=== PATIENT | male | born 1985 ===

== ENCOUNTER 2023-11-23 20:01 | Emergency (ER) | payer OTHER, SELFPAY ==
--- NOTE | ~2023-11-23 | XR_ITS ---
EXAMINATION: XR HAND, RIGHT CLINICAL INFORMATION: Right index and middle finger injuries COMPARISON: None available. TECHNIQUE: PA, lateral, and oblique views of the right hand. FINDINGS: Osseous alignment is anatomic. No acute fracture is seen. No significant focal soft tissue abnormality identified. XR/XR hand RT 2V IMPRESSION: No acute findings identified.
[2023-11-23 20:16] VITALS: BP 122/77; PULSE 77; RESP 18; TEMP 36.8; O2SAT 97; BMI 27.9
--- NOTE | 2023-11-23 20:18 | ED.GENADULT ---
HPI - General Adult General Chief complaint: Extremity Injury, Upper Stated complaint: ? broken finger Time Seen by Provider: 11/23/23 20:34 Source: patient Mode of arrival: ambulatory Limitations: no limitations History of Present Illness HPI narrative: Patient is a 38-year-old male presents emergency department for evaluation of traumatic pain to the right distal tips of the 1st and 2nd digit. Reports getting stuck between a fence post. Pain has persisted over the past week which prompted his evaluation in the ER. No obvious deformity is present, he is able to fully flex and extend the digits. States he has not taken any [id number] pain medications including Tylenol or ibuprofen. Denies any prior injury to these digits. Denies any numbness tingling or cold sensation. Related Data Allergies Allergy/AdvReac Type Severity Reaction Status Date / Time No Known Allergies Allergy Verified 11/23/23 20:19 Review of Systems Review of Systems: Yes all other systems are reviewed and are negative PMFSH Past Medical History Attestation statement: The following information was validated with the patient. Source: old records reviewed Social History Social History Alcohol intake: current Alcohol intake frequency: holidays/special occasions only Smoked in Last 30 Days: Yes Use of substances other than those prescribed or required for medical reasons: No Advance Directives: No Advance Directives Information Provided: No Physical Exam ED Vital Signs: Vital Signs - 24 hr 11/23/23 20:16 11/23/23 21:12 Temperature 98.2 F 98.4 F Pulse Rate 77 80 Respiratory Rate 18 16 Blood Pressure 122/77 128/84 Pulse Oximetry 97 96 Oxygen Delivery Method Room Air Room Air BMI result Body Mass Index 27.9 Appearance: Alert.?Oriented to person, place and time. No acute distress.?Normal affect. Neck: Normal inspection.? Neck supple.?? CVS: Heart sounds normal. Normal heart rate and rhythm.? Pulses normal.?? Respiratory: No respiratory distress.? Lung sounds clear to auscultation bilaterally?? Skin: Skin warm and dry.? Normal skin color.? Extremities: No lower extremity edema.? No calf ttp?digits try and without acute deformity, swelling, erythema. Full AROM. Neuro: Moves all extremities spontaneously. Sensation intact bilaterally. Ambulates with normal steady gait. Course Course Course Narrative: Injured right middle and index finger 1 week ago and still painful and swollen X-ray ordered This rapid medical exam and triage pending full evaluation by ER provider Medical Decision Making Medical Decision Making MDM Narrative: Patient is a 38 old male who presents emergency department for traumatic right hand pain to the 1st and 2nd digit as per HPI. Extremities neurovascularly intact distally. He is right-hand dominant. XR imaging obtained to evaluate for fracture/dislocation, x-ray is normal. Symptoms consistent with contusion, recommended acetaminophen/ibuprofen, outpatient follow-up PCP as needed. Differential Diagnosis Differential Diagnoses: The differential diagnosis associated with the presentation includes (As noted above) Independent Interpretation I performed an independent interpretation of an: Plain X-Ray (No acute fracture) Radiology Impression Discussion of test interpretation with radiology: I have reviewed the radiologist's reading. Radiologist Impression: XR/XR hand RT 2V IMPRESSION: No acute findings identified. Prescription Management I considered prescription management with: Pain Medication (Acetaminophen/ibuprofen) Discharge Plan Discharge Clinical Impression: Contusion of finger of right hand Patient Disposition: Home, Self-Care Instructions: Contusion in Adults (ED) Additional Instructions: You can take ibuprofen 200 mg, 3 tablets (600mg) every 6-8 hours as needed for pain, in addition to Tylenol 500 mg, 2 tablets (1,000mg) every 4-6 hours as needed for pain, but not to exceed 3 doses daily (3,000mg).?
[2023-11-23 21:12] VITALS: BP 128/84; PULSE 80; RESP 16; TEMP 36.9; O2SAT 96
== END 2023-11-23 22:08 | disposition home or self-care (01) ==
PROVIDERS: Emergency Provider Emergency Medicine
DX: S60.221A Contusion of right hand, initial encounter (principal); X58.XXXA Exposure to other specified factors, initial encounter; Y93.9 Activity, unspecified; Y92.9 Unspecified place or not applicable; Y99.8 Other external cause status
CPT/HCPCS: 73120; 99283; 99284

== ENCOUNTER 2024-05-20 05:27 | Emergency (ER) | payer OTHER, SELFPAY ==
--- NOTE | 2024-05-20 | ECG_ITS ---
Test Reason : tachycardia Blood Pressure : / mmHG Vent. Rate : 118 BPM Atrial Rate : 118 BPM P-R Int : 148 ms QRS Dur : 080 ms QT Int : 316 ms P-R-T Axes : 020 029 033 degrees QTc Int : 442 ms Sinus tachycardia Otherwise normal ECG No previous ECGs available Referred By: Generic ED Physician Electronically Signed By:JAMES CEBALLOS MD
--- NOTE | ~2024-05-20 | CT_ITS ---
EXAMINATION: CT ABDOMEN AND PELVIS WITHOUT CONTRAST CLINICAL INFORMATION: Flank pain COMPARISON: None available. TECHNIQUE: Multidetector volumetric imaging was performed from the superior aspect of the liver through the pubic symphysis. Sagittal and coronal reformatted images were obtained on the technologist's workstation. This CT examination was performed using dose optimization techniques as appropriate, variously including the following: *Automated exposure control *Adjustment of mA and/or kV according to patient size (this includes techniques or standardized protocols for targeted exams where dose is matched to indication/reason for exam; i.e. extremities or head) *Use of iterative reconstruction technique DLP: 781 mGy-cm FINDINGS: LUNG BASES: Emphysematous changes. No pneumothorax. No large pleural effusion. LIVER, GALLBLADDER, AND BILIARY TREE: The liver is normal in size, shape, and attenuation. No focal hepatic lesion or biliary ductal dilatation is present. The gallbladder is surgically absent. PANCREAS: Unremarkable. SPLEEN: Unremarkable. ADRENAL GLANDS: Unremarkable. KIDNEYS AND URETERS: The kidneys are normal in size, shape, and attenuation. No hydronephrosis, hydroureter, or calculi seen. No perinephric stranding. BLADDER: Urinary bladder is decompressed with suggestion of mild wall thickening which is nonspecific in an underdistended state. GASTROINTESTINAL TRACT: The small and large bowel are unremarkable. The appendix appears surgically absent. ABDOMINAL WALL: Fat filled umbilical hernia. LYMPH NODES: No enlarged lymph nodes per size criteria. VASCULAR: Abdominal aorta is nonaneurysmal. Circumaortic left renal vein. PELVIC VISCERA: Prostate measures 4.4 x 3.1 cm with punctate calcifications within its body. OSSEOUS STRUCTURES: Multilevel degenerative changes of the thoracolumbar lumbosacral spine with posterior disc osteophyte complex at L5-S1. CT/CT abdomen pelvis wo IV con IMPRESSION: 1. No acute process of the abdomen or pelvis identified. 2. Status post cholecystectomy. 3. Urinary bladder is decompressed with suggestion of mild wall thickening which is nonspecific in an underdistended state.
[2024-05-20 05:35] VITALS: BP 117/72; PULSE 126; RESP 18; TEMP 37.1; O2SAT 96; BMI 27.5
[2024-05-20 05:59] LABS: MANUAL DIFF FLAG NO
[2024-05-20 06:00] LABS: Basophils Percent Auto 0.7 % (0-2); Eosinophils Percent Auto 0.5 % (0-4); Hematocrit 45.3 % (42.0-52.0); Hemoglobin 16.1 g/dl (14.0-18.0); Imm Gran Abs Auto 0.03 X10*3/uL (0.00-0.03); Imm Gran Pct Auto 0.5 % (0.0-0.4); Lymphocytes Absolute Auto 1.4 X10*3/uL (1.2-4.9); Lymphocytes Percent Auto 23.5 % (20-40); Mean Corpuscular HGB Conc 35.5 g/dl (31.0-36.0); Mean Corpuscular Hemoglobin 31.5 pg (27.0-33.0); Mean Corpuscular Volume 88.6 fL (80.0-98.0); Mean Platelet Volume 11.2 fL (9.4-12.4); Monocytes Absolute Auto 0.5 X10*3/uL (0.1-1.2); Monocytes Percent Auto 7.3 % (2-11); Neutrophils Absolute Auto 4.2 x10*3/uL (2.0-8.3); Neutrophils Percent Auto 67.5 % (45-73); Platelet Count 166 X10*3/uL (160-400); Red Blood Count 5.11 X10*6/uL (4.60-5.80); Red Cell Distribution Width 12.3 % (11.0-16.0); White Blood Count 6.1 X10*3/uL (4.8-10.8)
[2024-05-20 06:18] VITALS: BP 104/69; PULSE 111; RESP 20; TEMP 37.1; O2SAT 95
[2024-05-20 06:18] LABS: Alanine Aminotransferase 33 U/L (0-40); Albumin Level 4.5 g/dL (3.5-5.0); Alkaline Phosphatase 75 U/L (39-117); Anion Gap 15 (12-20); Aspartate Amino Transferase 40 U/L (5-37); Bilirubin Total 0.9 mg/dL (0.0-1.0); Blood Urea Nitrogen 13 mg/dL (9-16); Calcium 9.2 mg/dL (8.4-10.2); Carbon Dioxide 20 mmol/L (22-29); Chloride 106 mmol/L (96-108); Creatinine Clr Calc Pharmacy 104.7; Estimated Glomerular Filt Rate > 60; Glucose Random 229 mg/dL (60-115); Lipase 19 U/L (8-78); Potassium 4.4 mmol/L (3.3-5.1); Sodium 137 mmol/L (135-145); Total Protein 7.8 g/dL (6.5-8.0)
[2024-05-20 06:22] LABS: Troponin-I High Sensitivity < 2.7 ng/L (<3.5-35.0)
[2024-05-20 06:26] LABS: B Type Natriuretic Peptide < 10 pg/mL (<100)
--- NOTE | 2024-05-20 06:46 | ED_ITS ---
HPI - Male Genitourinary General Chief complaint: Urogenital-Male Stated complaint: kidney pain Time Seen by Provider: 05/20/24 06:41 Source: patient Mode of arrival: ambulatory Limitations: no limitations History of Present Illness ED Provider: Brenda Zhao PA-C HPI Narrative: This is a 38 year old male with a medical history of PE on eliquis, sarcoidosis, DM type 2, presenting to the ED for intermittent sharp bilateral flank pain for 5 days which has been progressively getting worse. Patient states his pain at the moment is a 8/10. He reports associated chills and night sweats during the first 2 days of symptoms. Patient states his urine has been darker however denies burning sensation with urination and frequency of urination. He has a history of kidney stones in the past and feels this is similar to what he experience in the past. He denies trauma or falls, headaches, abdominal pain, chest pain, shortness of breath, numbness or any paresthesia, and dizziness. Onset (ago): day(s) (5) Related Data Previous Rx's ?Medication ?Instructions ?Recorded prednisone 20 mg tablet 20 mg PO DAILY 7 days #7 tabs 05/20/24 Allergies Allergy/AdvReac Type Severity Reaction Status Date / Time mushroom Allergy Difficulty Verified 05/20/24 05:39 Swallowing nut - unspecified Allergy Difficulty Verified 05/20/24 05:39 Swallowing Review of Systems 2 Constitutional: Constitutional: Reports no additional constitutional complaints, Denies chills, Denies fever(s) and Denies night sweats Eyes: Eyes: Reports no additional eye complaints, Denies blurry vision, Denies change in vision, Denies diplopia, Denies eye discharge, Denies loss of vision and Denies eye pain ENT: Denies dizziness Cardiovascular: Cardiovascular: Reports no additional cardiovascular complaints, Denies chest pain, Denies lightheadedness, Denies Loss of Consciousness and Denies dyspnea Respiratory: Respiratory: Reports no additional respiratory complaints and Denies dyspnea Gastrointestinal: Gastrointestinal: Reports no additional gastrointestinal complaints, Denies abdominal pain, Denies melena, Denies hematochezia, Denies change in bowel habits and Denies change in stool character Genitourinary: Genitourinary: Reports no additional male genitourinary complaints, Denies hematuria, Denies oliguria, Denies difficulty urinating, Denies dysuria, Reports flank pain (bilateral), Denies urinary frequency, Denies urinary hesitancy, Denies urinary incontinence and Denies urinary urgency Musculoskeletal: Musculoskeletal: Reports no additional musculoskeletal complaints, Denies numbness and Denies tingling Neurologic: Denies dizziness, Denies loss of vision, Denies numbness and Denies tingling Psychiatric: Psychiatric: Reports no additional psychiatric complaints Endocrine: Endocrine: Reports no additional endocrine complaints Hematologic/Lymphatic: Hematologic/Lymphatic: Reports no additional hematologic/lymphatic complaints Allergic/Immunologic: Allergic/Immunologic: Reports no additional allergic/immunologic complaints PMFSH Past Medical History Attestation statement: The following information was validated with the patient. Source: old records reviewed and nursing notes reviewed Social History Social History Alcohol intake: current Alcohol intake frequency: holidays/special occasions only Smoked in Last 30 Days: Yes Use of substances other than those prescribed or required for medical reasons: No Advance Directives: No Advance Directives Information Provided: No Physical Exam 2 Vital Signs: Vital Signs: Last Vital Signs Temp 98.0 F 05/20/24 09:42 Pulse 84 05/20/24 09:42 Resp 16 05/20/24 09:42 BP 107/62 05/20/24 09:42 Pulse Ox 95 05/20/24 09:42 O2 Del Method Room Air 05/20/24 09:42 BMI result Body Mass Index 27.5 Const: General: cooperative, no acute distress, alert and awake Nutritional Appearance: well nourished Orientation/consciousness: patient oriented x3 Limitations: no limitations HEENT: Head: Yes normal to inspection and Yes atraumatic Ears: hearing grossly normal bilaterally and external ears normal General nose exam: Normal external nose present, no nasal discharge noted and no epistaxis Face and sinus: Yes normal facial exam, No abrasion and No laceration Mouth: Normal oral and palatal mucosa present, no drooling and no muffled voice Eyes: General: appearance normal, both eyes and all related structures P eriorbital: periorbital findings normal Eyelids: Yes eyelids normal C onjunctivae: conjunctivae normal Pupils: Equal, round and reactive pupils present EOM: EOMs intact bilaterally Neck: Neck: Yes normal visual inspection, Yes full ROM and Yes no lymphadenopathy Chest: Chest palpation & inspection: normal inspection of the chest Resp: Effort & Inspection: normal respiratory effort and able to speak in complete sentences GI: Inspection: Yes normal to inspection Neuro: General: patient oriented x3 and moves all extremities Cranial nerves: Yes Equal, round and reactive pupils present Cognition (Neuro): n ormal cognition Extrem: General: Yes normal to inspection, Yes full ROM and Yes capillary refill normal Psych: Appearance: grossly normal Mental Status: mental status grossly normal Affect: normal affect Attitude: cooperative Thought process: N ormal thought process present Thought content: Normal thought content present Insight: Good insight present (Psych) Medications Administered Discontinued Medications Generic Name Dose Route Start Last Admin Trade Name Freq PRN Reason Stop Dose Admin Sodium Chloride 1,000 mls @ 999 mls/hr 05/20/24 07:30 05/20/24 09:10 Ns IV 05/20/24 08:30 Infused .Q1H1M TOSHIA Infusion Ketorolac Tromethamine 15 mg 05/20/24 07:20 05/20/24 08:07 Ketorolac Tromethamine 15 Mg/Ml Vial IVPUSH 05/20/24 07:21 15 mg ONCE ONE Administration Medical Decision Making Medical Decision Making MDM Narrative: Patient is a 38 year old assigned male at with a history of PE on eliquis, sarcoidosis and DM type 2, presenting to the emergency department today with bilateral flank pain. Patient's physical exam was unremarkable. Patient's blood work was unremarkable. Patient's urine showed no acute process. Patient's EKG was unremarkable. Patient's CT abd/pelvis showed no acute process but did show evidence of degenerative disc disease. I explained my physical exam findings as well as all test results to the patient. I answered all questions asked by the patient. I stressed the importance of the patient taking his medication as directed (either prescribed or as the over the counter packaging recommends). I stressed the importance of the patient following up with his primary care provider and if his back pain persists, a web analytics specialist. I stressed the importance of the patient returning to the emergency department immediately if his symptoms were to worsen or if he were to develop any dizziness, shortness of breath, difficulty breathing, chest pain, blurry vision, loss of vision, nausea, vomiting, abdominal pain, fever, chills, back pain, or any other complaints. Patient verbalized agreement and understanding with this treatment plan and discharge. Differential Diagnosis Differential Diagnoses: The differential diagnosis associated with the presentation includes Back pain Flank pain Kidney stone Muscle strain Admission/Observation Consideration of admission/observation: Escalation of care including admission/observation considered Patient would have been admitted to the hospital had his work up had any findings where hospital admission was appropriate and his clinical presentation warranted hospital admission. Lab Data [facility] Lab Attestation statement: I reviewed the patient's lab results. My interpretation of these results are in the [facility] Rationale portion of this note. 05/20/24 05:54 05/20/24 05:54 Labs: Lab Results 05/20/24 05/20/24 05/20/24 Range/Units 05:54 06:01 08:11 WBC 6.1 (4.8-10.8) X10*3/uL RBC 5.11 (4.60-5.80) X10*6/uL Hgb 16.1 (14.0-18.0) g/dl Hct 45.3 (42.0-52.0) % MCV 88.6 (80.0-98.0) fL MCH 31.5 (27.0-33.0) pg MCHC 35.5 (31.0-36.0) g/dl RDW 12.3 (11.0-16.0) % Plt Count 166 (160-400) X10*3/uL MPV 11.2 (9.4-12.4) fL Immature Gran % (Auto) 0.5 H (0.0-0.4) % Neut % (Auto) 67.5 (45-73) % Lymph % (Auto) 23.5 (20-40) % [place] % (Auto) 7.3 (2-11) % Eos % (Auto) 0.5 (0-4) % Baso % (Auto) 0.7 (0-2) % Lymph # (Auto) 1.4 (1.2-4.9) X10*3/uL [place] # (Auto) 0.5 (0.1-1.2) X10*3/uL Eos # (Auto) 0.0 (0.0-0.4) X10*3/uL Baso # (Auto) 0.0 (0.0-0.2) X10*3/uL Abs Immat Gran (auto) 0.03 (0.00-0.03) X10*3/uL Absolute Neuts (auto) 4.2 (2.0-8.3) x10*3/uL Absolute Nucleated RBC 0.000 (0.0-0.012) X10*3/uL Nucleated RBC % (auto) 0.0 (0.0-0.2) /100WBC Sodium 137 (135-145) mmol/L Potassium 4.4 (3.3-5.1) mmol/L Chloride 106 (96-108) mmol/L Carbon Dioxide 20 L (22-29) mmol/L Anion Gap 15 (12-20) BUN 13 (9-16) mg/dL Creatinine 1.12 (0.5-1.4) mg/dL Estim Creat Clear Calc 104.7 Estimated GFR > 60 Random Glucose 229 H (60-115) mg/dL Calcium 9.2 (8.4-10.2) mg/dL Total Bilirubin 0.9 (0.0-1.0) mg/dL AST 40 H (5-37) U/L ALT 33 (0-40) U/L Alkaline Phosphatase 75 (39-117) U/L Troponin I High Sens < 2.7 (<3.5-35.0) ng/L B-Natriuretic Peptide < 10 (<100) pg/mL Total Protein 7.8 (6.5-8.0) g/dL Albumin 4.5 (3.5-5.0) g/dL Lipase 19 (8-78) U/L Urine Color Yellow Urine Appearance Clear Urine pH 5.0 (5.0-9.0) Ur Specific [place] 1.015 (1.005-1.025) Urine Protein Negative (Neg-Trace) mg/dL Urine Glucose (UA) 100 H (Negative) mg/dL Urine Ketones Trace (Negative) mg/dL Urine Blood Negative (Negative) Urine Nitrite Negative (Negative) Ur Leukocyte Esterase Negative (Negative) Independent Interpretation I performed an independent interpretation of an: EKG and CT Scan Interpretation: My interpretation is in agreement with the radiologist's impression of this imaging study. - EXAMINATION: CT ABDOMEN AND PELVIS WITHOUT CONTRAST CLINICAL INFORMATION: Flank pain COMPARISON: None available. TECHNIQUE: Multidetector volumetric imaging was performed from the superior aspect of the liver through the pubic symphysis. Sagittal and coronal reformatted images were obtained on the technologist's workstation. This CT examination was performed using dose optimization techniques as appropriate, variously including the following: *Automated exposure control *Adjustment of mA and/or kV according to patient size (this includes techniques or standardized protocols for targeted exams where dose is matched to indication/reason for exam; i.e. extremities or head) *Use of iterative reconstruction technique DLP: 781 mGy-cm FINDINGS: LUNG BASES: Emphysematous changes. No pneumothorax. No large pleural effusion. LIVER, GALLBLADDER, AND BILIARY TREE: The liver is normal in size, shape, and attenuation. No focal hepatic lesion or biliary ductal dilatation is present. The gallbladder is surgically absent. PANCREAS: Unremarkable. SPLEEN: Unremarkable. ADRENAL GLANDS: Unremarkable. KIDNEYS AND URETERS: The kidneys are normal in size, shape, and attenuation. No hydronephrosis, hydroureter, or calculi seen. No perinephric stranding. BLADDER: Urinary bladder is decompressed with suggestion of mild wall thickening which is nonspecific in an underdistended state. GASTROINTESTINAL TRACT: The small and large bowel are unremarkable. The appendix appears surgically absent. ABDOMINAL WALL: Fat filled umbilical hernia. LYMPH NODES: No enlarged lymph nodes per size criteria. VASCULAR: Abdominal aorta is nonaneurysmal. Circumaortic left renal vein. PELVIC VISCERA: Prostate measures 4.4 x 3.1 cm with punctate calcifications within its body. OSSEOUS STRUCTURES: Multilevel degenerative changes of the thoracolumbar lumbosacral spine with posterior disc osteophyte complex at L5-S1. CT/CT abdomen pelvis wo IV con IMPRESSION: 1. No acute process of the abdomen or pelvis identified. 2. Status post cholecystectomy. 3. Urinary bladder is decompressed with suggestion of mild wall thickening which is nonspecific in an underdistended state. Dictated By: Deysi Ovalle MD Signed By: Electronically signed by Deysi Ovalle MD 05/20/24 0847 - Vent. Rate: 118 BPM Atrial Rate: 118 BPM P-R Int: 148 ms QRS Dur: 080 ms QT Int: 316 ms P-R-T Axes: 020 029 033 degrees QTc Int: 442 ms Sinus tachycardia Otherwise normal ECG No previous ECGs available DD/ [id number] Radiology Impression Discussion of test interpretation with radiology: I have reviewed the radiologist's reading. Discharge Plan Discharge Clinical Impression: Acute flank pain, Lumbar disc disease Patient Disposition: Home, Self-Care Instructions: Flank Pain (ED), Degenerative Disc Disease (ED) Additional Instructions: Follow up with your primary care provider and a web analytics specialist. Return to the emergency department immediately if your symptoms worsen or if you develop any dizziness, shortness of breath, difficulty breathing, chest pain, blurry vision, loss of vision, nausea, vomiting, abdominal pain, fever, chills, back pain, or any other complaints. Prescriptions: New prednisone 20 mg tablet 20 mg PO DAILY 7 Days Qty: 7 0RF Ref[place]: [facility] [place] [facility] [place] (Call to establish and follow up with a primary care provider. If you already have a primary care provider, please follow up with them.) [facility] [place]] [facility] [place] Group] [facility] [place] [facility] [Provider Group] (Call to establish and follow up with a web analytics specialist.) Stand Alone Forms: Work/School Release Interventions: ED Discharge Assessment Last Done: 05/20/24 09:42 Discharge Date/Time: 05/20/24 09:42 Print Language: Thai
[2024-05-20] MEDS: 0.9 % Sodium Chloride 1,000 ML 999 ML IV (08:07)
[2024-05-20] MEDS: Ketorolac Tromethamine 15 MG/ML VIAL IVPUSH (08:07)
[2024-05-20 08:23] LABS: Appearance Urine Clear; Color Urine Yellow; Glucose Urine UA 100 mg/dL (Negative); Leukocyte Esterase Urine Negative (Negative); Nitrite Urine Negative (Negative); Specific Gravity - Urine 1.015 (1.005-1.025); Urine Blood Negative (Negative); Urine Ketones Trace mg/dL (Negative); Urine Protein Negative (Neg-Trace)
[2024-05-20 08:39] VITALS: BP 107/62; PULSE 84; RESP 16; O2SAT 95
[2024-05-20 09:42] VITALS: BP 107/62; PULSE 84; RESP 16; TEMP 36.7; O2SAT 95
== END 2024-05-20 09:42 | disposition home or self-care (01) ==
PROVIDERS: Emergency Provider Emergency Medicine
DX: R10.9 Unspecified abdominal pain (principal); M51.36 Other intervertebral disc degeneration, lumbar region; R00.0 Tachycardia, unspecified
CPT/HCPCS: 36415; 74176; 80053; 81003; 83690; 83880; 84484; 85025; 93005; 96361; 96374; 99284; 99285; J1885

== ENCOUNTER → 2024-05-20 05:44 | Outpatient (BNV) | payer OTHER, SELFPAY | PROVIDERS: Emergency Provider Emergency Medicine; Visit Provider Internal Medicine Cardiovascular Disease | DX: R00.0 Tachycardia, unspecified (principal) | CPT/HCPCS: 93010 ==

== ENCOUNTER 2024-06-10 17:46 | Emergency (ER) | payer OTHER, SELFPAY ==
--- NOTE | ~2024-06-10 | XR_ITS ---
STUDY: Tibia/fibular radiographs. HISTORY: Laceration distal leg. Question foreign body/osseous involvement. COMPARISON: None available. TECHNIQUE: 3 radiographs of the left tibia and fibula were performed. FINDINGS: There is no fracture or dislocation. The regional soft tissues are normal in appearance. No radiopaque foreign object is identified. XR/XR tibia fibula LT 2V IMPRESSION: Normal left tibia and fibula. No radiopaque foreign object is identified. Electronically signed by: Walt Shabazz DO 06/10/2024 07:49 PM EDT
[2024-06-10 17:54] VITALS: BP 142/83; PULSE 97; RESP 16; TEMP 36.2; O2SAT 98; BMI 30.8
--- NOTE | 2024-06-10 17:54 | ED_ITS ---
HPI - Skin/Abscess/Foreign Bdy General Chief complaint: Wound/Laceration Stated complaint: leg lac Time Seen by Provider: 06/10/24 18:04 Source: patient Mode of arrival: ambulatory Limitations: no limitations History of Present Illness HPI narrative: Patient is a 38-year-old male who presents emergency department for evaluation of a laceration. Reports that he was cutting a piece of metal with a grinding wheel when it accidentally spun resulting in a laceration of his distal left lower extremity from the grinding wheel. Unaware of the date of last tetanus vaccination. Reports he is supposed to be anticoagulated due to a pulmonary embolism, but has not taken this for a few weeks; Eliquis Related Data Previous Rx's ?Medication ?Instructions ?Recorded prednisone 20 mg tablet 20 mg PO DAILY 7 days #7 tabs 05/20/24 Allergies Allergy/AdvReac Type Severity Reaction Status Date / Time mushroom Allergy Difficulty Verified 06/10/24 17:56 Swallowing nut - unspecified Allergy Difficulty Verified 06/10/24 17:56 Swallowing Review of Systems Review of Systems: Yes all other systems are reviewed and are negative [facility] Past Medical History Attestation statement: The following information was validated with the patient. Source: old records reviewed Social History Social History Alcohol intake: current Alcohol intake frequency: holidays/special occasions only Advance Directives: No Advance Directives Information Provided: No Do you have a plan to hurt others: No Plan Physical Exam Vital Signs: Vital Signs: Last Vital Signs Temp 97.8 F 06/10/24 19:53 Pulse 89 06/10/24 19:53 Resp 19 06/10/24 19:53 BP 140/78 H 06/10/24 19:53 Pulse Ox 99 06/10/24 19:53 O2 Del Method Room Air 06/10/24 19:53 BMI result Body Mass Index 30.8 Appearance: Alert.?Oriented to person, place and time. No acute distress.?Normal affect. Eyes: Pupils equal, round and reactive to light.? ENT: Pharynx normal.?? Neck: Normal inspection.? Neck supple.?? CVS: Heart sounds normal. Normal heart rate and rhythm.? Pulses normal.?? Respiratory: No respiratory distress.? Lung sounds clear to auscultation bilaterally?? Abdomen: Soft and non-tender. Normoactive bowel sounds. ? Skin: Skin warm and dry.? Normal skin color.? Extremities: No lower extremity edema.? No calf ttp.?1 cm laceration to the distal anterior tibial region just superior to the ankle. Neuro: Moves all extremities spontaneously. Sensation intact bilaterally. Ambulates with normal steady gait. Medications Administered Discontinued Medications Generic Name Dose Route Start Last Admin Trade Name Ziggyq PRN Reason Stop Dose Admin Acetaminophen 975 mg 06/10/24 19:00 06/10/24 19:15 Acetaminophen 325 Mg Tablet PO 06/10/24 19:01 975 mg ONCE ONE Administration Diphtheria/Tetanus/Acell Pertussis 0.5 ml 06/10/24 18:01 06/10/24 18:57 Diphth,Pertus(Acell),Tet Adult 0.5 Ml Syringe IM 06/10/24 18:02 0.5 ml .ONCE ONE Administration Ibuprofen 600 mg 06/10/24 19:00 06/10/24 19:15 Ibuprofen 600 Mg Tablet PO 06/10/24 19:01 600 mg ONCE ONE Administration Lidocaine HCl 5 ml 06/10/24 18:01 06/10/24 18:58 Lidocaine Hcl 1 % Mpf 5 Ml Vial SUBCUT 06/10/24 18:02 5 ml ONCE ONE Administration Medical Decision Making Medical Decision Making [facility] Narrative: Patient is a 38-year-old male who presents to the emergency department for evaluation of an accidental laceration as per HPI. Extremities neurovascularly intact distally. XR to be obtained to rule out retained foreign body though thought to be less likely due to the nature of the blade, will exclude osseous involvement given the proximity to his tibia in notable pain/bony tenderness. Laceration repaired under aseptic technique as per procedural portion of this note. Tdap updated. Regarding his noncompliance with Eliquis over the past few weeks, it is unclear to me whether his prior blood clot was provoked or unprovoked, advised that he should be taking his Eliquis as prescribed, and have a conversation with his primary care doctor/alliance director in regards to the duration of need for his blood clot. We discussed the life-threatening risk of developing another blood clot and he verbalizes understanding of this. Differential Diagnosis Differential Diagnoses: The differential diagnosis associated with the presentation includes (See narrative above) Radiology Impression Discussion of test interpretation with radiology: I have reviewed the radiologist's reading. External Record Review External record reviewed: Outpatient record Prescription Management I considered prescription management with: Pain Medication Procedures Laceration Laceration 1: Site: lower extremity Side (If applicable): left Size (cm): 1 Description: linear Depth: simple, single layer Local Anesthetic: lidocaine 1% Amount of anesthesia used (mL): 3 Pre-repair: wound explored Skin layer closed with: nylon Size (cm): 4-0 Number of sutures: 3 Technique: simple, interrupted Discharge Plan Discharge Clinical Impression: Laceration of leg Patient Disposition: Home, Self-Care Instructions: Laceration (ED) Additional Instructions: You may clean the area gently slowly with warm water and mild non scented soap over the next 2 days, dry the area afterwards, otherwise should remain dry until removed. Avoid prolonged soaking in water such as swimming, soaking in the bath. 3 Sutures will need to be removed in 8-10 days, you may return back to emergency department or follow-up with your primary care doctor for removal Tetanus vaccine was updated Return with any new or worsening symptoms or concerns such as increasing pain, redness, swelling, pus-like discharge, fevers or chills. As discussed it is very important that you take your Eliquis as prescribed by your doctor. You are at risk for developing addition blood clots. It is important that you have a conversation with your primary care doctor or alliance director Prescriptions: No Action prednisone 20 mg tablet 20 mg PO DAILY 7 Days Qty: 7 0RF Print Language: Portuguese
[2024-06-10] MEDS: Diphth,Pertus(ACell),Tet Adult 0.5 ML SYRINGE IM (18:57)
[2024-06-10] MEDS: Lidocaine HCl 1 % MPF 5 ML VIAL SUBCUT (18:58)
[2024-06-10] MEDS: Ibuprofen 600 MG TABLET PO (19:15)
[2024-06-10] MEDS: Acetaminophen 325 MG TABLET 975 MG PO (19:15)
[2024-06-10 19:53] VITALS: BP 140/78; PULSE 89; RESP 19; TEMP 36.6; O2SAT 99
[2024-06-10 20:03] VITALS: BP 140/78; PULSE 89; RESP 19; TEMP 36.6; O2SAT 99
== END 2024-06-10 20:04 | disposition home or self-care (01) ==
PROVIDERS: Emergency Provider Emergency Medicine Emergency Medical Services
DX: S81.812A Laceration without foreign body, left lower leg, initial encounter (principal); W31.89XA Contact with other specified machinery, initial encounter; Y93.9 Activity, unspecified; Y92.9 Unspecified place or not applicable; Y99.9 Unspecified external cause status; Z23 Encounter for immunization
CPT/HCPCS: 12001; 73590; 90471; 90715; 99283; 99284

== ENCOUNTER → 2024-10-16 18:41 | Outpatient (BNV) | payer OTHER, SELFPAY | PROVIDERS: Emergency Provider Emergency Medicine; Visit Provider Internal Medicine | DX: R07.9 Chest pain, unspecified (principal) | CPT/HCPCS: 93010 ==

== ENCOUNTER → 2024-10-16 18:48 | Outpatient (BNV) | payer OTHER, SELFPAY | PROVIDERS: Emergency Provider Emergency Medicine; Visit Provider Radiology Diagnostic Radiology | DX: R07.9 Chest pain, unspecified (principal); Z86.711 Personal history of pulmonary embolism | CPT/HCPCS: 71045; 71275 ==

== ENCOUNTER 2025-03-07 21:11 | Emergency (ER) | payer MEDICAID, SELFPAY ==
--- NOTE | ~2025-03-07 | CT_ITS ---
CLINICAL HISTORY: Hx PEs while on eliquis, hemoptysis, sob CT angiography chest with contrast. 3D Postprocessing. Comparison: CT/SR - CT ANGIO CHEST PE PROTOCOL - 10/16/24 20:20 EST Findings: Respiratory motion artifact degrades some of the provided images limiting interpretation. There is limited evaluation of the distal pulmonary arteries. The heart size is normal. RV/LV ratio is normal. Unremarkable thoracic aorta and great vessels. No aneurysm. No pulmonary artery filling defects. The visualized thyroid and mediastinum are unremarkable. Mediastinal and hilar lymph nodes are enlarged. Innumerable scattered tiny nodules are present bilaterally measuring 1-2 mm. Small focal pleural nodules are present bilaterally. Mild calcified pleural plaque is noted in the right lung base. Limited evaluation of the upper abdominal contents demonstrates hepatic steatosis. The bones are intact. IMPRESSION: 1. Calcified pleural plaque in the right lung base, suggesting prior asbestos exposure. 2. Scattered small pulmonary nodules with differential considerations including atypical infection. 3. Mediastinal and hilar lymphadenopathy. 4. No central or proximal segmental pulmonary embolism. This document has been electronically signed by: David Reddy MD, PHD on 03/08/2025 03:20:42
--- NOTE | ~2025-03-07 | XR_ITS ---
CLINICAL HISTORY: SOB 1 view chest x-ray Comparison: CR - XR CHEST 1V - 10/16/24 19:02 EST Findings: No consolidation or effusion. Unchanged triangular-shaped opacity of the right lung base. Heart size is normal. No acute fracture. IMPRESSION: 1. No acute findings. This document has been electronically signed by: Mayra Davis MD on 03/07/2025 21:58:00
[2025-03-07 21:19] VITALS: BP 124/81; PULSE 98; RESP 22; TEMP 36.7; O2SAT 95; BMI 31.4
--- NOTE | 2025-03-07 21:26 | ECG_ITS ---
Test Reason : SOB Blood Pressure : */* mmHG Vent. Rate : 97 BPM Atrial Rate : 97 BPM P-R Int : 138 ms QRS Dur : 84 ms QT Int : 344 ms P-R-T Axes : 53 54 46 degrees QTcB Int : 436 ms Normal sinus rhythm Normal ECG When compared with ECG of 16-Oct-2024 18:45, No significant change was found Referred By: Generic ED Physician Electronically Signed By: JAMES CEBALLOS MD
[2025-03-07 21:48] LABS: MANUAL DIFF FLAG NO
[2025-03-07 21:55] LABS: Basophils Percent Auto 0.4 % (0-2); Eosinophils Absolute Auto 0.1 X10*3/uL (0.0-0.4); Eosinophils Percent Auto 1.5 % (0-4); Hematocrit 44.6 % (42.0-52.0); Hemoglobin 15.9 g/dl (14.0-18.0); Imm Gran Abs Auto 0.03 X10*3/uL (0.00-0.03); Imm Gran Pct Auto 0.3 % (0.0-0.4); Lymphocytes Absolute Auto 1.2 X10*3/uL (1.2-4.9); Lymphocytes Percent Auto 12.9 % (20-40); Mean Corpuscular HGB Conc 35.7 g/dl (31.0-36.0); Mean Corpuscular Hemoglobin 31.4 pg (27.0-33.0); Mean Corpuscular Volume 88.1 fL (80.0-98.0); Mean Platelet Volume 11.3 fL (9.4-12.4); Monocytes Absolute Auto 0.7 X10*3/uL (0.1-1.2); Neutrophils Absolute Auto 7.5 x10*3/uL (2.0-8.3); Neutrophils Percent Auto 77.9 % (45-73); Platelet Count 151 X10*3/uL (160-400); Red Blood Count 5.06 X10*6/uL (4.60-5.80); Red Cell Distribution Width 12.4 % (11.0-16.0); White Blood Count 9.6 X10*3/uL (4.8-10.8)
[2025-03-07 22:02] LABS: Beta-Hydroxybutyrate 0.11 mmol/L (0.02-0.27)
[2025-03-07 22:03] LABS: Alanine Aminotransferase 38 U/L (0-40); Albumin Level 4.3 g/dL (3.5-5.0); Alkaline Phosphatase 103 U/L (39-117); Anion Gap 14 (12-20); Aspartate Amino Transferase 25 U/L (5-37); Bilirubin Total 1.4 mg/dL (0.0-1.0); Blood Urea Nitrogen 21 mg/dL (9-16); Calcium 9.4 mg/dL (8.4-10.2); Carbon Dioxide 26 mmol/L (22-29); Chloride 105 mmol/L (96-108); Creatinine Clr Calc Pharmacy 95.8; Estimated Glomerular Filt Rate 57; Glucose Random 244 mg/dL (60-115); Potassium 3.8 mmol/L (3.3-5.1); Sodium 141 mmol/L (135-145); Total Protein 7.2 g/dL (6.5-8.0)
[2025-03-07 22:26] LABS: Influenza A PCR NEGATIVE (Negative); Influenza B PCR NEGATIVE (Negative); Resp Syncy Virus RNA Qual PCR NEGATIVE (Negative); SARS COV2 PCR INHOUSE NEGATIVE (Negative)
[2025-03-07] MEDS: Albuterol Sulfate 5 MG, Albuterol/Iprat 2.5/0.5MG 3 ML 3 ML INHALE (22:51)
--- NOTE | 2025-03-07 22:51 | ED.URI ---
HPI - URI/Sore Throat General Chief Complaint: Upper Respiratory Symptoms Stated Complaint: respiratory issues Time Seen by Provider: 03/07/25 22:43 Source: patient Mode of arrival: ambulatory Limitations: no limitations History of Present Illness ED Provider: Dr. Mary Lieberman HPI Narrative: Patient comes to the emergency room complaining of wheezing, chest tightness. Patient states that for couple of weeks patient's cough has gradually been getting worse, and for the last few days he has been wheezing quite a bit. Patient states that he had left over prednisone from previous prescriptions then started taking it yesterday. Patient denies any chest pain. Patient has history of pulmonary embolisms and is on Eliquis. Patient denies any chest palpitations, denies any lower extremity pain or swelling. Related Data Previous Rx's ?Medication ?Instructions ?Recorded prednisone 20 mg tablet 20 mg PO DAILY 7 days #7 tabs 05/20/24 prednisone 20 mg tablet 20 mg PO DAILY 7 days #7 tabs 10/16/24 albuterol sulfate 90 mcg/actuation 2 puff inhalation Q4-6H PRN 03/08/25 aerosol inhaler shortness of breath or wheezing #8.5 grams prednisone 50 mg tablet 50 mg PO DAILY #4 tabs 03/08/25 Allergies Allergy/AdvReac Type Severity Reaction Status Date / Time mushroom Allergy Difficulty Verified 03/07/25 21:24 Swallowing nut - unspecified Allergy Difficulty Verified 03/07/25 21:24 Swallowing shellfish derived [shellfish] Allergy Hives Verified 03/07/25 21:24 Review of Systems Review of Systems: Constitutional : No Weight loss, No Fever, No Chills, No Night Sweats, No Fatigue, No Malaise ENT/Mouth : No Hearing loss, No Ear Pain, No Nasal Congestion, No Sinus Pain, No Hoarseness, No sore throat, No Rhinorrhea, No Swallowing Difficulty Eyes: No Eye Pain, No Swelling, No Redness, No Foreign Body, No Discharge, No Vision Changes Cardiovascular : No Chest Pain, No SOB, No Dyspnea on Exertion, No Orthopnea, No Edema, No Palpitations Respiratory : Complaining of cough, wheezing, chest tightness Gastrointestinal : No Nausea, No Vomiting, No Diarrhea, No Constipation, No abdominal Pain, No Hematochezia, No Melena Genitourinary : no irregular bleeding, No Dysuria, No Urinary Frequency, No Hematuria, No Urinary Incontinence, No Urgency, No Flank Pain, No Urinary Flow Changes, No Hesitancy Musculoskeletal : No joint pain, No Myalgias, No Joint Swelling Skin : No Skin Lesions, No rash Neuro : No Weakness, No Numbness, No Paresthesias, No Loss of Consciousness, No Dizziness, No Headache Psych : No Anxiety/Panic, No Depression, No SI/HI/AH/VH, No Social Issues, Heme/Lymph: No Bruising, No Bleeding,No Lymphadenopathy Endocrine : No Polyuria, No Polydipsia, No Temperature Intolerance FORMERLY [facility], [facility]–1983 Past Medical History Medical History Pulmonary embolism VTE (venous thromboembolism) Sarcoidosis Social History Social History Alcohol intake: current Alcohol intake frequency: holidays/special occasions only Patient Tobacco Use Status: Never used Tobacco Advance Directives: No Advance Directives Information Provided: Yes Do you have a plan to hurt others: No Plan Physical Exam Vital Signs: Vital Signs: Last Vital Signs Temp 97.8 F 03/08/25 03:14 Pulse 104 H 03/08/25 03:14 Resp 20 03/08/25 03:14 BP 116/69 03/08/25 03:14 Pulse Ox 96 03/08/25 03:14 O2 Del Method Room Air 03/07/25 21:19 BMI result Body Mass Index 31.4 Const: Other: Appearance: Alert. Oriented X3. No acute distress. Eyes: Pupils equal, round and reactive to light. ENT: Pharynx normal. Neck: Normal inspection. Neck supple. No lymph nodes noted. No crepitus CVS: Normal heart rate and rhythm. Pulses normal. Normal S1 and S2 Respiratory: No respiratory distress. Very diminished with a new sounds, occasional wheezing. Oxygen saturation 95%. Slightly tachypneic Abdomen: Soft and nontender. No rigidity. No distention. Skin: Skin warm and dry. Normal skin color. Normal skin turgor. Extremities: No lower extremity edema. No Lacerations. No Rash Neuro: Oriented X 3. No motor deficit. No sensory deficit. Moving all extremities. No slurred speech. CN 2 through 12 grossly intact Psych: calm, cooperative, normal affect Course Course Course Narrative: Patient receiving nebulization treatments, IV magnesium and Solu-Medrol Patient's labs and imaging pending Medications Administered Discontinued Medications Generic Name Dose Route Start Last Admin Trade Name Raf PRN Reason Stop Dose Admin Albuterol Sulfate 2.5 mg/ 5 mg 03/08/25 00:29 03/08/25 00:31 Albuterol Sulfate 2.5 mg INHALE 03/08/25 00:30 5 mg ONCE ONE Administration Albuterol Sulfate 5 mg/ 0 mg 03/07/25 22:49 03/07/25 22:51 Albuterol/Ipratropium 3 ml INHALE 03/07/25 22:50 1 each ONCE ONE Administration Magnesium Sulfate 2 gm in 50 mls @ 150 mls/hr 03/07/25 22:47 03/07/25 23:45 Magnesium Sulfate/H2o IV 03/07/25 23:06 Infused ONCE ONE Infusion Iohexol 85 ml 03/08/25 02:07 03/08/25 02:08 Iohexol 350 Mg/Ml 100 Ml Infus..Btl IV 03/08/25 02:08 85 ml ONCE ONE Administration Methylprednisolone Sodium Succinate 125 mg 03/07/25 22:47 03/07/25 23:08 Methylprednisolone Sod Succ 125 Mg Vial IVPUSH 03/07/25 22:48 125 mg ONCE ONE Administration Medical Decision Making Medical Decision Making MDM Narrative: My interpretation of chest x-ray: No acute abnormality My interpretation of hematology, no significant abnormality. Chemistry does not show any significant electrolyte abnormality, glucose 244, patient has been taking prednisone, no significant abnormality in patient's LFTs Serology negative for influenza RSV and COVID Patient has history of blood clots. Patient states that he developed them while he was already on Eliquis. Given his history of ongoing shortness of breath in the above-mentioned, we will order a CT scan to rule out PEs. Patient agrees with plan Patient ambulated, oxygen saturation 95% on room air. Patient states that he still feels short of breath. Patient has very minimal wheezing. Given patient's symptoms, I offered admission. However, patient states that he does not want to stay because he is afraid of a costly hospital bill because he does not have insurance. I discussed with the patient that we could talk with case management in the morning and helping with insurance. Patient states that he feels well enough to go home but prefers to not be admitted at this time. Discussed with the patient that if anything changes, he needs to come back, patient agrees with plan. CT for pulmonary embolism: Motion artifact degrades him of the provided images, limiting interpretation, the heart size is normal, innumerable scattered tiny nodules, small focal pleural nodules. No pulmonary artery filling defects -patient states that he is known to have sarcoidosis -given patient's vitals, ambulation trial, symptoms, at this time pulmonary embolism is not suspected, patient states that he is compliant with Eliquis Differential Diagnosis Differential Diagnoses: The differential diagnosis associated with the presentation includes (Asthma, URI) Admission/Observation Consideration of admission/observation: Escalation of care including admission/observation considered (Given patient's multiple comorbidities, admission was considered) Lab Data MDM Lab Attestation statement: I reviewed the patient's lab results. 03/07/25 21:41 03/07/25 21:41 Labs: Lab Results 03/07/25 Range/Units 21:41 WBC 9.6 (4.8-10.8) X10*3/uL RBC 5.06 (4.60-5.80) X10*6/uL Hgb 15.9 (14.0-18.0) g/dl Hct 44.6 (42.0-52.0) % MCV 88.1 (80.0-98.0) fL MCH 31.4 (27.0-33.0) pg MCHC 35.7 (31.0-36.0) g/dl RDW 12.4 (11.0-16.0) % Plt Count 151 L (160-400) X10*3/uL MPV 11.3 (9.4-12.4) fL Immature Gran % (Auto) 0.3 (0.0-0.4) % Neut % (Auto) 77.9 H (45-73) % Lymph % (Auto) 12.9 L (20-40) % Lawrence % (Auto) 7.0 (2-11) % Eos % (Auto) 1.5 (0-4) % Baso % (Auto) 0.4 (0-2) % Lymph # (Auto) 1.2 (1.2-4.9) X10*3/uL Lawrence # (Auto) 0.7 (0.1-1.2) X10*3/uL Eos # (Auto) 0.1 (0.0-0.4) X10*3/uL Baso # (Auto) 0.0 (0.0-0.2) X10*3/uL Abs Immat Gran (auto) 0.03 (0.00-0.03) X10*3/uL Absolute Neuts (auto) 7.5 (2.0-8.3) x10*3/uL Absolute Nucleated RBC 0.000 (0.0-0.012) X10*3/uL Nucleated RBC % (auto) 0.0 (0.0-0.2) /100WBC Sodium 141 (135-145) mmol/L Potassium 3.8 (3.3-5.1) mmol/L Chloride 105 (96-108) mmol/L Carbon Dioxide 26 (22-29) mmol/L Anion Gap 14 (12-20) BUN 21 H (9-16) mg/dL Creatinine 1.38 (0.5-1.4) mg/dL Estim Creat Clear Calc 95.8 Estimated GFR 57 Random Glucose 244 H (60-115) mg/dL Calcium 9.4 (8.4-10.2) mg/dL Magnesium 2.0 (1.6-2.6) mg/dL Total Bilirubin 1.4 H (0.0-1.0) mg/dL AST 25 (5-37) U/L ALT 38 (0-40) U/L Alkaline Phosphatase 103 (39-117) U/L Total Protein 7.2 (6.5-8.0) g/dL Albumin 4.3 (3.5-5.0) g/dL Beta-Hydroxybutyrate 0.11 (0.02-0.27) mmol/L Influenza Type A (PCR) NEGATIVE (Negative) Influenza Type B (PCR) NEGATIVE (Negative) RSV RNA Qual (PCR) NEGATIVE (Negative) SARS-CoV-2 RNA (RT-PCR) NEGATIVE (Negative) Independent Interpretation I performed an independent interpretation of an: CT Scan Interpretation: No consolidation or effusion. Unchanged triangular-shaped opacity of the right lung base. Heart size is normal. No acute fracture Radiology Impression Discussion of test interpretation with radiology: I have reviewed the radiologist's reading. Radiologist Impression: Findings: Respiratory motion artifact degrades some of the provided images limiting interpretation. There is limited evaluation of the distal pulmonary arteries. The heart size is normal. RV/LV ratio is normal. Unremarkable thoracic aorta and great vessels. No aneurysm. No pulmonary artery filling defects. The visualized thyroid and mediastinum are unremarkable. Mediastinal and hilar lymph nodes are enlarged. Innumerable scattered tiny nodules are present bilaterally measuring 1-2 mm. Small focal pleural nodules are present bilaterally. Mild calcified pleural plaque is noted in the right lung base. Limited evaluation of the upper abdominal contents demonstrates hepatic steatosis. The bones are intact. IMPRESSION: 1. Calcified pleural plaque in the right lung base, suggesting prior asbestos exposure. 2. Scattered small pulmonary nodules with differential considerations including atypical infection. 3. Mediastinal and hilar lymphadenopathy. 4. No central or proximal segmental pulmonary embolism. Critical Care Time Critical Care Time Critical Care Time: Yes Total Critical Care Time: 45 Attestation: I have personally provided critical care time. Time includes review of lab data, radiology results, discussion with consultants, and monitoring for potential decompensation. Intervention performed as documented. Discharge Plan Discharge Clinical Impression: Asthma, Cough Patient Disposition: Home, Self-Care Instructions: Asthma (ED), Acute Cough (ED) Additional Instructions: Please follow-up with your primary care physician tomorrow. If you have any worsening or new symptoms, please return to the emergency room or call 911 Prescriptions: New albuterol sulfate 90 mcg/actuation HFA aerosol inhaler 2 puff inhalation Q4-6H PRN (Reason: shortness of breath or wheezing) Qty: 8.5 0RF prednisone 50 mg tablet 50 mg PO DAILY Qty: 4 0RF No Action prednisone 20 mg tablet 20 mg PO DAILY 7 Days Qty: 7 0RF prednisone 20 mg tablet 20 mg PO DAILY 7 Days Qty: 7 0RF Stand Alone Forms: Work/School Release Print Language: Welsh
[2025-03-07 22:52] VITALS: PULSE 95; RESP 24; O2SAT 96
[2025-03-07] MEDS: Magnesium Sulfate/H2O 2 GM/50 ML PIGGYBACK IV (23:08)
[2025-03-07 23:33] VITALS: O2SAT 93
[2025-03-08 00:30] VITALS: PULSE 92; RESP 20; O2SAT 96
[2025-03-08] MEDS: Albuterol Sulfate 2.5 MG, Albuterol Sulfate (0.083%) 2.5 MG 5 MG INHALE (00:31)
[2025-03-08] MEDS: iohexoL 350 MG/ML 100 ML INFUS..BTL 85 ML IV (02:08)
[2025-03-08 03:14] VITALS: BP 116/69; PULSE 104; RESP 20; TEMP 36.6; O2SAT 96
[2025-03-08 04:00] VITALS: BP 116/69; PULSE 104; RESP 20; TEMP 36.6; O2SAT 96
== END 2025-03-08 04:05 | disposition home or self-care (01) ==
PROVIDERS: Emergency Provider Emergency Medicine
DX: J45.909 Unspecified asthma, uncomplicated (principal); R05.9 Cough, unspecified; R06.02 Shortness of breath; Z03.818 Encounter for observation for suspected exposure to other biological agents ruled out; Z86.711 Personal history of pulmonary embolism; Z79.01 Long term (current) use of anticoagulants
CPT/HCPCS: 0241U; 36415; 71045; 71275; 80053; 82010; 83735; 85025; 93005; 94640; 96365; 96375; 99285; J2919; J3475; Q9967

== ENCOUNTER → 2025-03-07 21:26 | Outpatient (BNV) | payer MEDICAID, SELFPAY | PROVIDERS: Emergency Provider Emergency Medicine; Visit Provider Internal Medicine Cardiovascular Disease | DX: R06.02 Shortness of breath (principal) | CPT/HCPCS: 93010 ==

== ENCOUNTER → 2025-03-07 21:26 | Outpatient (BNV) | payer MEDICAID, SELFPAY | PROVIDERS: Visit Provider Nuclear Medicine | DX: R06.02 Shortness of breath (principal) | CPT/HCPCS: 71045 ==

== ENCOUNTER → 2025-03-08 01:43 | Outpatient (BNV) | payer MEDICAID, SELFPAY | PROVIDERS: Emergency Provider Emergency Medicine; Visit Provider General Practice | DX: J92.9 Pleural plaque without asbestos (principal); R91.8 Other nonspecific abnormal finding of lung field; R59.0 Localized enlarged lymph nodes | CPT/HCPCS: 71275 ==